=== PATIENT | male | born 1975 | race Caucasian/White ===

== ENCOUNTER 2019-04-04 16:38 | Inpatient (IN) | payer OTHER ==
[2019-04-04] MEDS ORDERED: SODIUM CHLORIDE 1,000 ML IV STA (16:42)
--- NOTE | 2019-04-04 16:42 | PDOC ---
Rapid Medical Evaluation Time Seen by Provider: 04/04/19 16:39 Medical Evaluation: I have performed a brief in-person evaluation of this patient. The patient presents with a chief complaint of: Sent by PCP for elevated sugar and ketones in urine; tests were done this morning; patient denies any prior hx of DM; patient reports increased thirst, polyuria x 1 month; denies n/v, abd pain Pertinent physical exam findings: In NAD I have ordered the following: Labs The patient will proceed to the ED for further evaluation. 04/04/19 16:39
--- NOTE | 2019-04-04 17:03 | PDOC ---
History of Present Illness - General Chief Complaint: Blood Sugar Problem Stated Complaint: SENT BY DOCTOR Time Seen by Provider: 04/04/19 16:39 - History of Present Illness Initial Comments: 04/04/19 17:35 PCP: Dr. Denisse Mei. Patient is a 43 year old male called by his PCP to come to the ED for evaluation of ketones in urine and elevated blood sugar. As per the patient, he went to his PCP for a physical today, got his blood work done at [facility] and was called by Dr. Mei to come to the ED for the treatment of hyperglycemia. Patient reports that for the past month, he has lost about 30 lbs, has been having polyuria, urinating almost every hour even at night. Polydipsia, drinking 15-20 bottles a day. He also has been feeling weak, tired and loss of appetite since a month. Patient has been using his 's finger stick glucose monitoring, readings were 400's and sometimes even over the range. He has a h/o asthma and states that he has worsening shortness of breath for the past 3 weeks, unable to walk more than 10 mis. Uses Proair for shortness of breath. Has been taking multivitamins for the past 2 weeks which has been helping his energy level and shortness of breath. Past Medical History: None reported. Didn't have blood work done in 10 yrs Allergies: Shellfish Past Surgical History: None reported Medications: Multivitamins Social history: Lives with his and 3 kids (22 yrs, 10 yrs and 3 yrs) Smoking: Denies Alcohol: Rarely, last alcohol intake was 10yrs ago Drugs: Denies Occupation: Works at a construction company Travel: None. Past History - Travel Traveled outside of the country in the last 30 days: No Close contact w/someone who was outside of country & ill: No - Past Medical History Allergies/Adverse Reactions: Allergies Allergy/AdvReac Type Severity Reaction Status Date / Time No Known Allergies Allergy Verified 04/04/19 16:43 Home Medications: Ambulatory Orders Albuterol Sulfate Inhaler - [Ventolin HFA Inhaler -] 2 inh PO Q8H PRN MDD 3 04/18 Glimepiride 2 mg DAILY 04/06/19 Insulin (Levemir) [Levemir Vial] 20 unit SQ DAILY 04/06/19 Metformin HCl [Glucophage] 500 mg BID 04/06/19 COPD: No - Surgical History Gastric Stapling: No - Immunization History Immunization Up to Date: No - Suicide/Smoking/Psychosocial Hx Smoking History: Never smoked Have you smoked in the past 12 months: No Information on smoking cessation initiated: No Hx Alcohol Use: No Drug/Substance Use Hx: No Review of Systems - Review of Systems Able to Perform ROS?: Yes Is the patient limited Divehi proficient: No *Physical Exam - Vital Signs Last Vital Signs Temp Pulse Resp BP Pulse Ox 98.7 F 95 H 18 130/83 99 04/04/19 16:40 04/04/19 16:40 04/04/19 16:40 04/04/19 16:40 04/04/19 16:40 - Physical Exam Comments: 04/04/19 17:46 General: Patient is sitting comfortably in a chair, awake, alert, oriented, in no acute distress. HEENT: EOM intact, no pallor or icterus. Chest: B/L lungs clear, no added sounds CVS: Regular rate rhythm, no mumurs Abdomen: Soft, non tender, no organomegaly, BS + Ext: No peripheral edema Neuro: Awake, alert, oriented x 3. No focal neurological deficits. ED Treatment Course - LABORATORY CBC & Chemistry Diagram: 04/06/19 06:20 04/06/19 06:20 Medical Decision Making - Medical Decision Making 04/04/19 17:50 Patient had CBC, CMP done this morning at [facility]. Blood sugar was 315 with normal AG. A1c 13.5. Will do a stat BMP. If AG is closed, will give him a dose of Metformin 500 mg. Rest of the labs HIV, Hep panel, RPR is pending 04/04/19 18:54 Repeat BMP : Random glucose 697 with normal Anion gap. Will admit the patient.. IV NS 500 bolus followed by maintenance. IV Insulin 5 Units. Admit to Med-Surg for observation. Will microblog symphony. 04/04/19 18:58 Spoke with the patient. He agrees to stay. Signed out to Dr. Luis. *DC/Admit/Observation/Transfer Diagnosis at time of Disposition: Type 2 diabetes mellitus with hyperosmolarity without nonketotic hyperglycemic- hyperosmolar coma ([facility]) - Discharge Dispostion Disposition: HOME Condition at time of disposition: Improved - Referrals - Patient Instructions - Post Discharge Activity
--- NOTE | 2019-04-04 17:31 | PDOC ---
Attending Attestation - Resident Resident Name: Isaac,Jenny - ED Attending Attestation I have performed the following: I have examined & evaluated the patient, The case was reviewed & discussed with the resident, I agree w/resident's findings & plan, Exceptions are as noted - HPI HPI: 04/04/19 18:04 Mr johnson is a 43 yo M who presents to the ER upon the recommendation of his PMD Pt has no past medical history Pt notes that he has had polyuria (he urinates every hour which makes it difficult to sleep through the night and do he 2 hour commute to work), polydypsia His is a diabetic and was able to do a fingerstick for the patient He has noted fingersticks between 200-400. Sometimes, the fingerstick is above range Pt was seen by Dr. Mei today who sent labs Pt was called by Dr Mei when the labs revealed a blood glucose of 300 Pt was referred to Dr Roche Pt denies fevers, chills, headache Pt denies chest pain, shortness of breath, palpitation 04/04/19 18:26 - Physicial Exam PE: 04/04/19 18:07 GENERAL: The patient is in no acute distress EYES: PERRLA, EOMI ENT: Dry mucous membranes NECK: Normal range of motion, supple LUNGS: Breath sounds equal, clear to auscultation bilaterally. HEART:Regular rate and rhythm, normal S1 and S2 without murmur, rub or gallop. ABDOMEN: Soft, nontender, normoactive bowel sounds. EXTREMITIES: Normal range of motion NEUROLOGICAL: Cranial nerves II through XII grossly intact. Normal speech. No focal neurological deficits. MUSCULOSKELETAL: Back non-tender to palpation SKIN: Warm, Dry, normal turgor, no rashes or lesions noted. - Medical Decision Making 04/04/19 18:31 43 yo M presenting with polyuria polydypsia Pt has new onset diabetes Will repeat labs Will hydrate Will start Metformin 04/04/19 18:43 Laboratory Tests 04/04/19 17:45 Sodium 129 L Potassium 4.2 Chloride 93 L Carbon Dioxide 25 Anion Gap 11 BUN 14 Creatinine 1.2 Calcium 9.4 04/04/19 18:52 Laboratory Tests 04/04/19 17:45 Random Glucose 697 H* Blood glucose very elevated Will give IVF, Insulin, Metformin, Repeat fingerstick 04/04/19 21:18 EKG - Sinus tachycardia rate of 107bpm, axis nml, intervals nml, no st elevation or depression, t waves upright Will admit to hospitalist service Clinical impression: new onset diabetes, initial presentation
[2019-04-04 18:38] LABS: CALCIUM 9.4 mg/dL (8.5-10.1); CREATININE 1.2 mg/dL (0.55-1.3); POTASSIUM 4.2 mmol/L (3.5-5.1)
[2019-04-04] MEDS ORDERED: SODIUM CHLORIDE 500 ML IV STA (18:58)
[2019-04-04] MEDS ORDERED: INSULIN REGULAR HUMAN 100 UNITS/ML *VIAL IVPUSH ONE (18:59)
[2019-04-04] MEDS ORDERED: metFORMIN HCL 500 MG TABLET (FP) PO ONE (19:02)
--- NOTE | 2019-04-04 19:25 | PN ---
Teaching Attending Note Name of Resident: Ericka Fatima ATTENDING PHYSICIAN STATEMENT I saw and evaluated the patient. I reviewed the resident's note and discussed the case with the resident. I agree with the resident's findings and plan as documented. SUBJECTIVE: Patient is a 43 year old maln with history of asthma and recently diagnosed DM called by his PCP to come to the ER for evaluation of ketones in urine and elevated blood sugar. He went to his PCP for a physical today, and was called by Dr. Mei to come to the ER for the treatment of hyperglycemia. Patient reports that for the past month, he has lost about 30 lbs, has been having polyuria, urinating almost every hour even at night. Polydipsia, drinking 15-20 bottles a day. He also has been feeling weak, tired and loss of appetite since a month. Patient has been using his 's finger stick glucose monitoring, readings were 400's and sometimes even over the range. He has worsening shortness of breath for the past 3 weeks, unable to walk more than 10 mis. Uses Proair for shortness of breath. OBJECTIVE: Alert Vital Signs Period Temp Pulse Resp BP Sys/Boggs Pulse Ox Last 24 Hr 98.7 F 95 18 130/83 99 HEENT: No Jaundice, eye redness or discharge, PERRLA, EOMI. Normocephalic, atraumatic. External ears are normal and hearing is grossly intact. No nasal discharge. Neck: Supple, nontender. No palpable adenopathy or thyromegaly. No JVD Chest: Good effort. Clear to auscultation and percussion. Heart: Regular. No S3, rub or murmur Abdomen: Not distended, soft, nontender and no HSM. No rebound or guarding. Normal bowel sounds. Ext: Peripheral pulses intact. No leg edema. : Phimosis with tender foreskin; crusting with white spots. Skin: Warm and dry. No petechiae, rash or ecchymosis. Neuro: Alert. Oriented x3. CN 2-12 grossly intact. Sensation grossly intact in all four extremities and DTR are symmetric. Psych: Appropriate mood and affect. Good insight. Current Medications Generic Name Dose Route Start Last Admin Trade Name Freq PRN Reason Stop Dose Admin Sodium Chloride 500 mls @ 500 mls/hr 04/04/19 18:58 Normal Saline - IV 04/04/19 19:57 ASDIR STA Abnormal Lab Results 04/04/19 17:45 Sodium 129 L Chloride 93 L Random Glucose 697 H* ASSESSMENT AND PLAN: 1. Uncontrolled DM/New Onset DM - Hyperglycemia improving after being treated with insulin and IV NS in the ER. Will give IV KCL once indicated. No evidence of DKA and no precipitating infection. Will treat with metformin and implement sliding scale insulin regimen. Provide comprehensive diabetes care with patient teaching and counseling about the importance of adherence to prescribed diabetes regimen, euglycemia, eye care and foot care. Refer to VNS upon discharge and to Opthalmology for eye exam. Treat balanitis with fluconazole. Patient already has a referral to Urology for Phimosis. Will repeat urinalysis and if proteinuria persists, will give an ACEI or ARB. Nonpharmacologic measures to control hypertension like weight loss, salt restriction and exercise discussed. Continue comprehensive care for asthma. 2. Overweight Counseled on the risks associated with overweight. Will provide patient all the necessary assistance, counseling and positive reinforcement to facilitate weight loss. Consult cub reporter. Recent unintended weight loss likely due to emergence of DM. 3. DVT prophylaxis - Lovenox 40 mg SQ q 24 hours. 4. Advance directives - Full code
[2019-04-04] MEDS ORDERED: metFORMIN HCL 500 MG TABLET (FP) ONE (19:33)
[2019-04-04] MEDS ORDERED: INSULIN REGULAR HUMAN 100 UNITS/ML *VIAL ONE (19:33)
[2019-04-04 19:39] LABS: BASO % 0.6 % (0-2.0); EOS % 1.9 % (0-4.5); HEMATOCRIT 48.7 % (35.4-49); LYMPH % 25.6 % (8-40); MCH 30.7 pg (25.7-33.7); MCHC 32.9 g/dl (32.0-35.9); MEAN CELL VOLUME 93.2 fl (80-96); MEAN PLT VOLUME 10.2 fl (7.5-11.1); MONO % 10.6 % (3.8-10.2); NEUT % 61.3 % (42.8-82.8); PLATELET COUNT 197 K/MM3 (134-434); RBC 5.23 M/mm3 (4.00-5.60); RDW 13.4 % (11.9-15.9); WHITE BLOOD COUNT 7.3 K/mm3 (4.0-10.0)
--- NOTE | 2019-04-04 19:48 | HP ---
CHIEF COMPLAINT: Referred for elevated glucose by PCP PCP: Denisse Mei HISTORY OF PRESENT ILLNESS: Pt is a 43 yo M with PMHx of asthma, seasonal allergies presenting from PCP with elevated glucose up to the 300s. Pt reports polyuria (every hour), polydypsia,nocturia, and unintentional weight loss of 230lb to 193lb over the past month with increased lethargy and malaise. Pt reports a prior poor diet- high in carbs and sugary drinks prior to onset of symptoms one month ago, after which he cut off sweet drinks and was drinking up to 15-20 bottles of water per day. Pt's is a diabetic on metformin and insulin so pt had been checking his blood glucose at home prior to presentation. Over a monh ago, the glucometer read "high" but within the past month, he has ranged within 200s-300s. Pt denies fevers, hematuria or dysuria but has noted pain and tightening of his penile foreskin, without urethral discharge. Pt reports reduced exercise intolerance, with increased SOB on exertion. No chest pain or palpitations. 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 He has never been prescribed inhaled or PO steroids but got an intralesional steroid injection for a hand cyst in 1994. Pt has had reduced sexual activity despite normal desire, due to recent "tightened foreskin". Pt second degree relatives with DM. He saw his PCP today and was asked to come to ED. She also gave him referrals to urology, for CTAP and GI (for weight loss). 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 Lives with and 2 daughters-3.10 (has a 22yr old daughter also) Smoking:Denies Alcohol:Occasional Drugs: Denies Family History: Allergies Seasonal No Known Allergies Allergy (Verified 04/04/19 16:43) HOME MEDICATIONS: REVIEW OF SYSTEMS CONSTITUTIONAL: generalized weakness, malaise, weight change Absent: fever, chills, diaphoresis, , loss of appetite, HEENT: Absent: rhinorrhea, nasal congestion, throat pain, throat swelling, difficulty swallowing, mouth swelling, ear pain, eye pain, visual changes CARDIOVASCULAR: Absent: chest pain, syncope, palpitations, irregular heart rate, lightheadedness , peripheral edema RESPIRATORY: shortness of breath, dyspnea with exertion, Absent: cough, orthopnea, wheezing, stridor, hemoptysis GASTROINTESTINAL: Absent: abdominal pain, abdominal distension, nausea, vomiting, diarrhea, constipation, melena, hematochezia GENITOURINARY: frequency Absent: dysuria, , urgency, hesitancy, hematuria, flank pain, genital pain MUSCULOSKELETAL: Absent: myalgia, arthralgia, joint swelling, back pain, neck pain SKIN: Absent: rash, itching, pallor HEMATOLOGIC/IMMUNOLOGIC: Absent: easy bleeding, easy bruising, lymphadenopathy, frequent infections ENDOCRINE: unexplained weight loss Absent: unexplained weight gain, heat intolerance, cold intolerance NEUROLOGIC: Absent: headache, focal weakness or paresthesias, dizziness, unsteady gait, seizure, mental status changes, bladder or bowel incontinence PSYCHIATRIC: Absent: anxiety, depression, suicidal or homicidal ideation, hallucinations. PHYSICAL EXAMINATION Vital Signs - 24 hr 04/04/19 16:40 Temperature 98.7 F Pulse Rate 95 H Respiratory 18 Rate Blood Pressure 130/83 O2 Sat by Pulse 99 Oximetry (%) GENERAL: Awake, alert, and fully oriented, in no acute distress. HEAD: Normal with no signs of trauma. EYES: Pupils equal, round and reactive to light, extraocular movements intact, sclera anicteric, conjunctiva clear. Visual acuity (counting fingers), patient with corrective lenses, funduscopic exam (undilated pupils- not revealing of any pathology) EARS, NOSE, THROAT: Ears normal, nares patent, oropharynx clear without exudates. Moist mucous membranes. NECK: Normal range of motion, supple LUNGS: Breath sounds equal, clear to auscultation bilaterally. No wheezes, and no crackles. HEART: Regular rate and rhythm, normal S1 and S2 without murmur ABDOMEN: Soft, nontender, not distended, normoactive bowel sounds, no guarding Genitalia: Foreskin retracted over urethral orifice with scattered whitish deposits within and around urethra, pinkish, no abnormal discharge or rash noted MUSCULOSKELETAL: Normal range of motion at all joints. No bony deformities or tenderness. No CVA tenderness. LOWER EXTREMITIES: 2+ pulses, warm, well-perfused. No calf tenderness. No peripheral edema. NEUROLOGICAL: AAOx3, No lateralizing signs, No facial droop, normal sensation, central uvular and tongue, shoulder shrug normal, Cranial nerves II-XII intact.Normal tone globally, hyporeflexia, b/l ankles, L, knee, normoreflexia triceps b/l, biceps b/l, brachioradialis b/l. Downgoing plantar reflex. Normal speech. Normal gait. No drift, negative dysdiachokinesia, absent ataxia. PSYCHIATRIC: Cooperative. Good eye contact. Appropriate mood and affect. SKIN: Warm, dry, normal turgor, no rashes or lesions noted, normal capillary refill. CBCD WBC 7.3 K/mm3 (4.0-10.0) 04/04/19 19:20 RBC 5.23 M/mm3 (4.00-5.60) 04/04/19 19:20 Hgb 16.0 GM/dL (11.7-16.9) 04/04/19 19:20 Hct 48.7 % (35.4-49) 04/04/19 19:20 MCV 93.2 fl (80-96) 04/04/19 19:20 MCHC 32.9 g/dl (32.0-35.9) 04/04/19 19:20 RDW 13.4 % (11.9-15.9) 04/04/19 19:20 Plt Count 197 K/MM3 (134-434) 04/04/19 19:20 MPV 10.2 fl (7.5-11.1) 04/04/19 19:20 CMP Sodium 131 mmol/L (136-145) L 04/04/19 19:20 Potassium 4.2 mmol/L (3.5-5.1) 04/04/19 19:20 Chloride 94 mmol/L (98-107) L 04/04/19 19:20 Carbon Dioxide 26 mmol/L (21-32) 04/04/19 19:20 Anion Gap 10 MMOL/L (8-16) 04/04/19 19:20 BUN 12 mg/dL (7-18) 04/04/19 19:20 Creatinine 1.1 mg/dL (0.55-1.3) 04/04/19 19:20 Random Glucose 488 mg/dL (74-106) H* 04/04/19 19:20 Calcium 9.5 mg/dL (8.5-10.1) 04/04/19 19:20 Total Bilirubin 0.4 mg/dL (0.2-1) 04/04/19 19:20 AST 17 U/L (15-37) 04/04/19 19:20 ALT 43 U/L (13-61) 04/04/19 19:20 Alkaline Phosphatase 118 U/L (45-117) H 04/04/19 19:20 Total Protein 7.6 g/dl (6.4-8.2) 04/04/19 19:20 Albumin 3.6 g/dl (3.4-5.0) 04/04/19 19:20 Laboratory Results - last 24 hr 04/04/19 17:45 Sodium 129 L Potassium 4.2 Chloride 93 L Carbon Dioxide 25 Anion Gap 11 BUN 14 Creatinine 1.2 Est GFR (CKD-EPI)AfAm 85.32 Est GFR (CKD-EPI)NonAf 73.62 Random Glucose 697 H* Calcium 9.4 ASSESSMENT/PLAN: Pt is a 43 yo M with PMHx of asthma, seasonal allergies presenting with new onset DM Assessment: New onset DM with Hyperglycemia- 697, [id number] Hyponatremia- nabor-139 Ketonuria Proteinuria Glycosuria Hyperlipidemia Erythrocytosis Dehydration Balanitis Weight loss Blurring vision Dyspnea on exertion Asthma Seasonal allergies Cr-1.2 Plan: DM: Hyperglycemia up to 670s, HgbA1c- 13.5, received metformin and iv insulin in ED, repeat BGM- 175 KCL 40meq PO stat Pt not acidotic despite ketonuria, and glycosuria Serum osmoles not in HHS range, Pt is a candidate for insulin therapy, will initiate ISS ACHS, basal insulin to be determined as half 24hr dose Pt is insulin niave and appeared to ddrop fast, counselled against hypoglycemia , will maintain ISS for today and hold off metformin as in pt DM education instituted- Eye care stat emphasized, annual foot care, counselling on foot care including foot wear For outpt fll up with Dr Smith per PCP Pt will need DM/insulin education-SW Dehydration: In setting of hyperglycemia NS @83 Blurred vision could be due to hyperglycemia with acute change in refractive index/ retinopathy Tight glycemic control, follow ophtho as outpx Hyponatremia- nabor-139: In setting of hyperglycemia and dehydration- 1.5L Pt on NS, cont gentle hydration @83/hr K repletion PO CMP, Mg, ph Proteinuria -1+: With new onset DM BP Stage 1 HTN Start ACEI for renal protection Hyperlipidemia ASCVD- 4% risk of cardiovascular event, 0.9% 10 year risk of cardiovascular event Pt with family hx of DM Will initiate statins Balanitis Clotrimazole cream Erythrocytosis Likely in setting of dehydration/ obstructive lung disease Rehydrate Pending CXR SOB Could be in setting of asthma, R/O cardiovascular disease ECHO Statins Weight loss: Likely in setting of DM Outpt work up per PCP Asthma/seasonal allergies Not in exacerbation Albuterol Spiriva Hep sq Med surg Visit type - Emergency Visit Emergency Visit: Yes ED Registration Date: 04/04/19 Care time: The patient presented to the Emergency Department on the above date and was hospitalized for further evaluation of their emergent condition. - New Patient This patient is new to me today: Yes Date on this admission: 04/05/19 - Critical Care Critical Care patient: No
[2019-04-04 19:54] LABS: VENOUS PC02 41.1 mmHg (41-51); VENOUS PH 7.39 (7.31-7.41); VENOUS PO2 52.1 mmHg (30-40)
[2019-04-04 20:11] LABS: ALBUMIN 3.6 g/dl (3.4-5.0); ALK PHOS 118 U/L (45-117); ANION GAP 10 MMOL/L (8-16); BILIRUBIN,TOTAL 0.4 mg/dL (0.2-1); BLOOD UREA NITROGEN 12 mg/dL (7-18); CALCIUM 9.5 mg/dL (8.5-10.1); CHLORIDE 94 mmol/L (98-107); CO2 26 mmol/L (21-32); CREATININE 1.1 mg/dL (0.55-1.3); POTASSIUM 4.2 mmol/L (3.5-5.1); SGOT/AST 17 U/L (15-37); SGPT/ALT 43 U/L (13-61); SODIUM 131 mmol/L (136-145); TOT PROT 7.6 g/dl (6.4-8.2)
[2019-04-04 20:13] LABS: ACETONE SERUM POSITIVE MODERATE 2+ (NEGATIVE)
[2019-04-04 20:14] LABS: GLUCOSE,RANDOM 488 mg/dL (74-106)
[2019-04-04 20:21] LABS: ALBUMIN 3.5 g/dl (3.4-5.0); BILIRUBIN,DIRECT 0.1 mg/dL (0.0-0.2); BILIRUBIN,TOTAL 0.4 mg/dL (0.2-1); MAGNESIUM 1.9 mg/dL (1.8-2.4); PHOSPHOROUS 3.7 mg/dL (2.5-4.9); TOT PROT 7.3 g/dl (6.4-8.2)
[2019-04-04] MEDS ORDERED: POTASSIUM CHLORIDE ORAL LIQUID 20 MEQ/15 ML PO ONE (22:13)
[2019-04-04] MEDS ORDERED: ALBUTEROL SO4 2.5/IPRATROPIUM 0.5 INH SOL 3 ML VIAL.NEB. NEB PRN (22:33)
[2019-04-04] MEDS ORDERED: ALBUTEROL SO4 8 GM HFA INHALER IH PRN (22:33)
[2019-04-04 23:22] VITALS: BMI 29.2
[2019-04-04] MEDS: HEPARIN NA (PORCINE) 5,000 UNITS/ML 1ML VIAL SQ SCH (23:57)
[2019-04-05] MEDS: SODIUM CHLORIDE 1,000 ML IV SCH ×2 (00:03→12:47)
[2019-04-05] MEDS: ATORVASTATIN CA 40 MG TABLET (FP) PO SCH ×2 (00:04→21:31)
[2019-04-05] MEDS: CLOTRIMAZOLE 1% CREAM 15 GM TUBE TP SCH ×3 (00:04→21:32)
[2019-04-05] MEDS ORDERED: INSULIN (NOVOLOG) ASPART 100 UNITS/ML 10ML VIAL ONE ×3 (06:21→20:39)
[2019-04-05] MEDS: HEPARIN NA (PORCINE) 5,000 UNITS/ML 1ML VIAL SQ SCH ×3 (06:22→21:31)
[2019-04-05] MEDS: INSULIN SLIDING SCALE (NOVOLOG) 1 VIAL SQ SCH ×5 (06:22→21:32)
[2019-04-05 07:26] LABS: BASO % 0.8 % (0-2.0); EOS % 2.3 % (0-4.5); HEMATOCRIT 44.3 % (35.4-49); HEMOGLOBIN 14.7 GM/dL (11.7-16.9); LYMPH % 22.9 % (8-40); MCH 30.9 pg (25.7-33.7); MCHC 33.3 g/dl (32.0-35.9); MEAN CELL VOLUME 92.9 fl (80-96); MEAN PLT VOLUME 10.1 fl (7.5-11.1); MONO % 11.8 % (3.8-10.2); NEUT % 62.2 % (42.8-82.8); PLATELET COUNT 162 K/MM3 (134-434); RBC 4.77 M/mm3 (4.00-5.60); RDW 13.5 % (11.9-15.9); WHITE BLOOD COUNT 5.9 K/mm3 (4.0-10.0)
[2019-04-05 07:33] LABS: BILIRUBIN,TOTAL 0.5 mg/dL (0.2-1); CALCIUM 8.5 mg/dL (8.5-10.1); CREATININE 0.8 mg/dL (0.55-1.3); MAGNESIUM 1.8 mg/dL (1.8-2.4); PHOSPHOROUS 3.2 mg/dL (2.5-4.9); POTASSIUM 4.4 mmol/L (3.5-5.1); TOT PROT 6.4 g/dl (6.4-8.2)
[2019-04-05 08:01] LABS: INR 0.98 (0.83-1.09); PROTHROMBIN TIME (PATIENT) 11.6 SEC (9.7-13.0)
[2019-04-05 08:03] LABS: ACTIVATED PTT 27.1 SECONDS (25.2-36.5)
[2019-04-05] MEDS: LOSARTAN POTASSIUM 50 MG TABLET (FP) PO SCH (10:27)
[2019-04-05 12:36] LABS: EPI CELLS 1.1 /HPF (0-5/HPF); HYALINE CASTS 0 /lpf (0-8); PH,URINE 5.5 (5.0-8.0); URINE APPEARANCE CLEAR; URINE BILIRUBIN NEGATIVE (NEGATIVE); URINE COLOR YELLOW; URINE GLUCOSE (UA) 3+ (NEGATIVE); URINE KETONE 3+ (NEGATIVE); URINE LEUK ESTERASE 2+ (NEGATIVE); URINE NITRITE NEGATIVE (NEGATIVE); URINE PROTEIN NEGATIVE (NEGATIVE); URINE RBC 2 /hpf (0-4); URINE WBC 59 /hpf (0-5)
--- NOTE | 2019-04-05 12:53 | EKG ---
Test Reason : Blood Pressure : / mmHG Vent. Rate : 107 BPM Atrial Rate : 107 BPM P-R Int : 126 ms QRS Dur : 076 ms QT Int : 320 ms P-R-T Axes : 054 -06 029 degrees QTc Int : 427 ms POOR DATA QUALITY, INTERPRETATION MAY BE ADVERSELY AFFECTED SINUS TACHYCARDIA POSSIBLE LEFT ATRIAL ENLARGEMENT BORDERLINE ECG NO PREVIOUS ECGS AVAILABLE Confirmed by SAMREEN BUI MD ([id number]) on 04/05/2019 12:52:58 PM Referred By: Confirmed By:SAMREEN BUI MD
--- NOTE | 2019-04-05 13:47 | ECHO ---
Name: TAMARA GRACE Exam:Adult Echocardiogram Study Date: 04/05/2019 10:51 AM Age: 43 yrs Reason For Study: SOB Height: 68 in Weight: 193 lb BSA: 2.0 m2 MMode/2D Measurements & Calculations IVSd: 1.0 cm Ao root diam: 3.3 cm LVIDd: 4.6 cm LA dimension: 3.4 cm LVIDs: 3.3 cm LVPWd: 0.92 cm EDV(Teich): 95.9 ml LVOT diam: 2.0 cm ESV(Teich): 43.3 ml LAV (MOD-bp): 35.1 ml Doppler Measurements & Calculations MV E max jhonny: 81.5 cm/sec Ao V2 max: 176.5 cm/sec MV A max jhonny: 74.7 cm/sec Ao max P.5 mmHg MV E/A: 1.1 MV dec time: 0.18 sec QUINTIN(V,D): 2.1 cm2 LV V1 max P.2 mmHg TR max jhonny: 183.9 cm/sec LV V1 max: 124.2 cm/sec TR max P.5 mmHg PA V2 max: 123.5 cm/sec Med Peak E' Jhonny: 7.3 cm/sec PA max P.1 mmHg Med E/e': 11.2 Lat Peak E' Jhonny: 9.5 cm/sec Lat E/e': 8.6 PI Vmax: 164.2 cm/sec Procedure A complete two-dimensional transthoracic echocardiogram was performed (2D, M-mode, Doppler and color flow Doppler). Left Ventricle The left ventricular size, thickness and function are normal. The left ventricular ejection fraction is normal. Ejection Fraction = 55-60%. The left ventricular wall motion is normal. Right Ventricle The right ventricle is normal in size and function. Atria Normal left and right atrial size and function. Mitral Valve There is no mitral regurgitation noted. Tricuspid Valve There is trace tricuspid regurgitation. There was insufficient TR detected to calculate RV systolic p ressure. Aortic Valve No hemodynamically significant valvular aortic stenosis. No aortic regurgitation is present. Pulmonic Valve There is no pulmonic valvular regurgitation. Great Vessels The aortic root is normal size. Pericardium/Pleura There is no pericardial effusion. Interpretation Summary The left ventricular size, thickness and function are normal The right ventricle is normal in size and function. There is trace tricuspid regurgitation. MD Harpal Hu 04/05/2019 01:47 PM
--- NOTE | 2019-04-05 17:27 | PN ---
Physical Exam: SUBJECTIVE: Patient seen and examined at bedside. Denies blurry vision or shortness of breath. OBJECTIVE: Vital Signs Period Temp Pulse Resp BP Sys/Boggs Pulse Ox Last 24 Hr 97.2 F-99.4 F 83-100 16-20 114-132/21-84 98-100 GENERAL: NAD HEAD: Normal with no signs of trauma. EYES: EOMI Sclera Clear ENT: Ears normal, nares patent, oropharynx clear without exudates, moist mucous membranes. NECK: Trachea midline, full range of motion, supple. LUNGS: CTAB HEART: RRR S1S2 ABDOMEN: Soft, NDNT EXTREMITIES: 2+ pulses, warm, well-perfused, no edema. No ulcers or onychomycosis appreciated. NEUROLOGICAL: Cranial nerves II through XII grossly intact. Normal speech, gait not observed. PSYCH: Normal mood, normal affect. SKIN: Warm, dry, normal turgor, no rashes or lesions noted Laboratory Results - last 24 hr 04/04/19 04/04/19 04/04/19 17:45 19:20 19:20 WBC 7.3 RBC 5.23 Hgb 16.0 Hct 48.7 MCV 93.2 MCH 30.7 MCHC 32.9 RDW 13.4 Plt Count 197 MPV 10.2 Absolute Neuts (auto) 4.5 Neutrophils % 61.3 Lymphocytes % 25.6 Monocytes % 10.6 H Eosinophils % 1.9 Basophils % 0.6 Nucleated RBC % 0 PT with INR INR PTT (Actin FS) VBG pH 7.39 POC VBG pCO2 41.1 POC VBG pO2 52.1 H VBG HCO3 24.5 VBG O2 Sat (Alpa) 85.5 H VBG Base Excess 0.1 Sodium 129 L Potassium 4.2 Chloride 93 L Carbon Dioxide 25 Anion Gap 11 BUN 14 Creatinine 1.2 Est GFR (CKD-EPI)AfAm 85.32 Est GFR (CKD-EPI)NonAf 73.62 POC Glucometer Random Glucose 697 H* Serum Osmolality 308 H Calcium 9.4 Phosphorus 3.7 Magnesium 1.9 Total Bilirubin 0.4 Direct Bilirubin 0.1 AST 15 ALT 42 Alkaline Phosphatase 124 H Total Protein 7.3 Albumin 3.5 Urine Color Urine Appearance Urine pH Ur Specific [place] Urine Protein Urine Glucose (UA) Urine Ketones Urine Blood Urine Nitrite Urine Bilirubin Urine Urobilinogen Ur Leukocyte Esterase Urine WBC (Auto) Urine RBC (Auto) Urine Casts (Auto) U Epithel Cells (Auto) Urine Bacteria (Auto) Acetone, Qual 04/04/19 04/04/19 04/05/19 19:20 20:24 06:00 WBC 5.9 RBC 4.77 Hgb 14.7 Hct 44.3 MCV 92.9 MCH 30.9 MCHC 33.3 RDW 13.5 Plt Count 162 MPV 10.1 Absolute Neuts (auto) 3.7 Neutrophils % 62.2 Lymphocytes % 22.9 Monocytes % 11.8 H Eosinophils % 2.3 Basophils % 0.8 Nucleated RBC % 0 PT with INR INR PTT (Actin FS) VBG pH POC VBG pCO2 POC VBG pO2 VBG HCO3 VBG O2 Sat (Alpa) VBG Base Excess Sodium 131 L Potassium 4.2 Chloride 94 L Carbon Dioxide 26 Anion Gap 10 BUN 12 Creatinine 1.1 Est GFR (CKD-EPI)AfAm 94.79 Est GFR (CKD-EPI)NonAf 81.78 POC Glucometer 175 Random Glucose 488 H* Serum Osmolality Calcium 9.5 Phosphorus Magnesium Total Bilirubin 0.4 Direct Bilirubin AST 17 ALT 43 Alkaline Phosphatase 118 H Total Protein 7.6 Albumin 3.6 Urine Color Urine Appearance Urine pH Ur Specific [place] Urine Protein Urine Glucose (UA) Urine Ketones Urine Blood Urine Nitrite Urine Bilirubin Urine Urobilinogen Ur Leukocyte Esterase Urine WBC (Auto) Urine RBC (Auto) Urine Casts (Auto) U Epithel Cells (Auto) Urine Bacteria (Auto) Acetone, Qual Positive moderate 2+ 04/05/19 04/05/19 04/05/19 06:00 06:00 06:18 WBC RBC Hgb Hct MCV MCH MCHC RDW Plt Count MPV Absolute Neuts (auto) Neutrophils % Lymphocytes % Monocytes % Eosinophils % Basophils % Nucleated RBC % PT with INR 11.60 INR 0.98 PTT (Actin FS) 27.1 VBG pH POC VBG pCO2 POC VBG pO2 VBG HCO3 VBG O2 Sat (Alpa) VBG Base Excess Sodium 135 L Potassium 4.4 Chloride 100 Carbon Dioxide 27 Anion Gap 7 L BUN 11 Creatinine 0.8 Est GFR (CKD-EPI)AfAm 126.81 Est GFR (CKD-EPI)NonAf 109.41 POC Glucometer 267 Random Glucose 268 H Serum Osmolality Calcium 8.5 Phosphorus 3.2 Magnesium 1.8 Total Bilirubin 0.5 Direct Bilirubin AST 11 L ALT 35 Alkaline Phosphatase 84 Total Protein 6.4 Albumin 3.0 L Urine Color Urine Appearance Urine pH Ur Specific [place] Urine Protein Urine Glucose (UA) Urine Ketones Urine Blood Urine Nitrite Urine Bilirubin Urine Urobilinogen Ur Leukocyte Esterase Urine WBC (Auto) Urine RBC (Auto) Urine Casts (Auto) U Epithel Cells (Auto) Urine Bacteria (Auto) Acetone, Qual 04/05/19 04/05/19 04/05/19 11:55 12:04 17:02 WBC RBC Hgb Hct MCV MCH MCHC RDW Plt Count MPV Absolute Neuts (auto) Neutrophils % Lymphocytes % Monocytes % Eosinophils % Basophils % Nucleated RBC % PT with INR INR PTT (Actin FS) VBG pH POC VBG pCO2 POC VBG pO2 VBG HCO3 VBG O2 Sat (Alpa) VBG Base Excess Sodium Potassium Chloride Carbon Dioxide Anion Gap BUN Creatinine Est GFR (CKD-EPI)AfAm Est GFR (CKD-EPI)NonAf POC Glucometer 211 208 Random Glucose Serum Osmolality Calcium Phosphorus Magnesium Total Bilirubin Direct Bilirubin AST ALT Alkaline Phosphatase Total Protein Albumin Urine Color Yellow Urine Appearance Clear Urine pH 5.5 Ur Specific [place] 1.030 Urine Protein Negative Urine Glucose (UA) 3+ H Urine Ketones 3+ H Urine Blood Negative Urine Nitrite Negative Urine Bilirubin Negative Urine Urobilinogen 1.0 Ur Leukocyte Esterase 2+ H Urine WBC (Auto) 59 Urine RBC (Auto) 2 Urine Casts (Auto) 0 U Epithel Cells (Auto) 1.1 Urine Bacteria (Auto) 72.0 Acetone, Qual Active Medications Generic Name Dose Route Start Last Admin Trade Name Freq PRN Reason Stop Dose Admin Albuterol Sulfate 2 puff 04/04/19 22:33 Ventolin Hfa Inhaler - IH Q6H PRN SHORT OF BREATH/WHEEZING Albuterol/Ipratropium 1 amp 04/04/19 22:33 Duoneb - NEB Q6H PRN SHORTNESS OF BREATH Atorvastatin Calcium 40 mg 04/04/19 22:30 04/05/19 00:04 Lipitor - PO 40 mg HS WOODY Administration Clotrimazole 1 applic 04/04/19 23:00 04/05/19 10:22 Lotrimin 1% Cream - TP 1 applic BID WOODY Administration Heparin Sodium (Porcine) 5,000 unit 04/04/19 22:15 04/05/19 14:25 Heparin - SQ Not Given TID WOODY Sodium Chloride 1,000 mls @ 83 mls/hr 04/04/19 22:15 04/05/19 12:47 Normal Saline - IV 83 mls/hr ASDIR WOODY Administration Insulin Aspart 1 vial 04/05/19 07:00 04/05/19 17:08 Novolog Vial Sliding Scale - SQ 4 units ACHS WOODY Administration Protocol Losartan Potassium 100 mg 04/05/19 10:00 04/05/19 10:27 Cozaar - PO 100 mg DAILY WOODY Administration ASSESSMENT/PLAN: Pt is a 43 yo M with PMHx of asthma, seasonal allergies presenting with new onset DM # New onset DM: Hyperglycemia up to 670s, HgbA1c- 13.5, received metformin and iv insulin in ED , repeat BGM- 175 -Pt not acidotic despite ketonuria, and glycosuria -Serum osmoles not in HHS range, -Pt is a candidate for insulin therapy as A1C >9% - will initiate ISS ACHS, basal insulin to be determined as half 24hr dose -Endocrinology consult -Pt has been counseled thoroughly on importance of medication compliance and prompt follow up with PCP/Endocrinology. #Proteinuria -1+: With new onset DM BP Stage 1 HTN Start ACEI for renal protection #Hyperlipidemia Cholesterol 246, ldl 142 Pt with family hx of DM Will initiate statins #Balanitis and Phimosis Clotrimazole cream -Urology referral as outpatient for circumcision. #SOB Could be in setting of asthma, R/O cardiovascular disease ECHO---> Trace Tricusid regurg. EF 55-60%. Statins #Weight loss: Likely in setting of DM Outpt work up per PCP #Asthma/seasonal allergies Not in exacerbation Albuterol Spiriva #Hep sq Med surg Visit type - Emergency Visit Emergency Visit: Yes ED Registration Date: 04/04/19 Care time: The patient presented to the Emergency Department on the above date and was hospitalized for further evaluation of their emergent condition. - New Patient This patient is new to me today: Yes Date on this admission: 04/05/19 - Critical Care Critical Care patient: No - Discharge Referral Referred to [facility] Med [facility].: No
--- NOTE | 2019-04-05 19:15 | PN ---
Teaching Attending Note Name of Resident: Hal Tom ATTENDING PHYSICIAN STATEMENT I saw and evaluated the patient. I reviewed the resident's note and discussed the case with the resident. I agree with the resident's findings and plan as documented. SUBJECTIVE: Patient is comfortable with no acute distress. OBJECTIVE: Vital Signs Temperature 98.4 F 04/05/19 18:13 Pulse Rate 74 04/05/19 18:13 Respiratory Rate 20 04/05/19 18:13 Blood Pressure 113/74 04/05/19 18:13 O2 Sat by Pulse Oximetry (%) 98 04/05/19 09:00 GENERAL: The patient is awake, alert, and fully oriented, in no acute distress. HEAD: Normal with no signs of trauma. EYES: PERRL, extraocular movements intact, sclera anicteric, conjunctiva clear. No ptosis. ENT: Ears normal, nares patent, oropharynx clear without exudates, moist mucous membranes. NECK: Trachea midline, full range of motion, supple. LUNGS: Breath sounds equal, clear to auscultation bilaterally, no wheezes, no crackles, no accessory muscle use. HEART: Regular rate and rhythm, S1, S2 without murmur, rub or gallop. ABDOMEN: Soft, nontender, nondistended, normoactive bowel sounds, no guarding, no rebound, no hepatosplenomegaly, no masses. EXTREMITIES: 2+ pulses, warm, well-perfused, no edema. NEUROLOGICAL: Cranial nerves II through XII grossly intact. Normal speech, gait not observed. PSYCH: Normal mood, normal affect. SKIN: Warm, dry, normal turgor, no rashes or lesions noted CBCD WBC 5.9 K/mm3 (4.0-10.0) 04/05/19 06:00 RBC 4.77 M/mm3 (4.00-5.60) 04/05/19 06:00 Hgb 14.7 GM/dL (11.7-16.9) 04/05/19 06:00 Hct 44.3 % (35.4-49) 04/05/19 06:00 MCV 92.9 fl (80-96) 04/05/19 06:00 MCHC 33.3 g/dl (32.0-35.9) 04/05/19 06:00 RDW 13.5 % (11.9-15.9) 04/05/19 06:00 Plt Count 162 K/MM3 (134-434) 04/05/19 06:00 MPV 10.1 fl (7.5-11.1) 04/05/19 06:00 CMP Sodium 135 mmol/L (136-145) L 04/05/19 06:00 Potassium 4.4 mmol/L (3.5-5.1) 04/05/19 06:00 Chloride 100 mmol/L (98-107) 04/05/19 06:00 Carbon Dioxide 27 mmol/L (21-32) 04/05/19 06:00 Anion Gap 7 MMOL/L (8-16) L 04/05/19 06:00 BUN 11 mg/dL (7-18) 04/05/19 06:00 Creatinine 0.8 mg/dL (0.55-1.3) 04/05/19 06:00 Random Glucose 268 mg/dL (74-106) H 04/05/19 06:00 Calcium 8.5 mg/dL (8.5-10.1) 04/05/19 06:00 Total Bilirubin 0.5 mg/dL (0.2-1) 04/05/19 06:00 AST 11 U/L (15-37) L 04/05/19 06:00 ALT 35 U/L (13-61) 04/05/19 06:00 Alkaline Phosphatase 84 U/L (45-117) 04/05/19 06:00 Total Protein 6.4 g/dl (6.4-8.2) 04/05/19 06:00 Albumin 3.0 g/dl (3.4-5.0) L 04/05/19 06:00 Current Medications Generic Name Dose Route Start Last Admin Trade Name Freq PRN Reason Stop Dose Admin Albuterol Sulfate 2 puff 04/04/19 22:33 Ventolin Hfa Inhaler - IH Q6H PRN SHORT OF BREATH/WHEEZING Albuterol/Ipratropium 1 amp 04/04/19 22:33 Duoneb - NEB Q6H PRN SHORTNESS OF BREATH Atorvastatin Calcium 40 mg 04/04/19 22:30 04/05/19 00:04 Lipitor - PO 40 mg HS WOODY Administration Clotrimazole 1 applic 04/04/19 23:00 04/05/19 10:22 Lotrimin 1% Cream - TP 1 applic BID WOODY Administration Glimepiride 2 mg 04/06/19 07:00 Amaryl - PO DAILY@0700 [facility] Heparin Sodium (Porcine) 5,000 unit 04/04/19 22:15 04/05/19 14:25 Heparin - SQ Not Given TID [facility] Insulin Aspart 1 vial 04/05/19 07:00 04/05/19 17:08 Novolog Vial Sliding Scale - SQ 4 units ACHS WOODY Administration Protocol Losartan Potassium 100 mg 04/05/19 10:00 04/05/19 10:27 Cozaar - PO 100 mg DAILY WOODY Administration Home Medications Medication Instructions Recorded Albuterol Sulfate Inhaler - 2 inh PO Q8H PRN MDD 3 04/05/19 [Ventolin Hfa Inhaler -] ASSESSMENT AND PLAN: Patient is a 43 yo Male with PMHx of asthma, seasonal allergies presenting with new onset DM # New onset DM: presented with sugar of 670s, HgbA1c- 13.5. Endocrine for consult dr. Roy , continue Amaryl, started on Levemir # Acute Hyponatremia: improved post ivf # Acute Dehydration: s/p IVF #Blurred vision due to hyperglycemia follow with opthalm as an outpatient, tight sugar control # Proteinuria: start low dose ACEI for renal protection # Hyperlipidemia on statin # Balanitis: clotrimazole cream # Asthma/seasonal allergies: stable , continue home meds DVT Px: hep Med surg
[2019-04-06] MEDS: INSULIN SLIDING SCALE (NOVOLOG) 1 VIAL SQ SCH ×2 (06:24→11:03)
[2019-04-06] MEDS: HEPARIN NA (PORCINE) 5,000 UNITS/ML 1ML VIAL SQ SCH ×2 (06:25→13:10)
[2019-04-06] MEDS ORDERED: GLIMEPIRIDE 2 MG TABLET (FP) PO SCH (07:00)
[2019-04-06 07:41] LABS: HEMATOCRIT 45.5 % (35.4-49); HEMOGLOBIN 15.3 GM/dL (11.7-16.9); MCH 31.2 pg (25.7-33.7); MCHC 33.6 g/dl (32.0-35.9); MEAN PLT VOLUME 10.4 fl (7.5-11.1); PLATELET COUNT 168 K/MM3 (134-434); RBC 4.89 M/mm3 (4.00-5.60); RDW 13.4 % (11.9-15.9); WHITE BLOOD COUNT 5.3 K/mm3 (4.0-10.0)
[2019-04-06 07:49] LABS: CALCIUM 8.6 mg/dL (8.5-10.1); CREATININE 0.8 mg/dL (0.55-1.3); MAGNESIUM 1.8 mg/dL (1.8-2.4); POTASSIUM 4.4 mmol/L (3.5-5.1)
[2019-04-06] MEDS: LOSARTAN POTASSIUM 50 MG TABLET (FP) PO SCH (09:22)
[2019-04-06] MEDS: CLOTRIMAZOLE 1% CREAM 15 GM TUBE TP SCH (09:22)
[2019-04-06 09:51] VITALS: BP 127/73; PULSE 73; TEMP 99.1
--- NOTE | 2019-04-06 13:03 | CONSULT ---
Consult Consult Specialty:: endocrine Referred by:: hospitalist Reason for Consultation:: new onset dm - History of Present Illness Chief Complaint: high sugars History of Present Illness: 43 year old male called by his PCP for new onset dm found to have high sugars and ketones. Patient reports that for the past month, he has lost about 30 lbs, has been having polyuria, urinating almost every hour even at night. Polydipsia , drinking 15-20 bottles a day. He also has been feeling weak, tired and loss of appetite since a month. in ed found to have bs over 400mg/dl Patient has been using his 's finger stick glucose monitoring, readings were 400's and sometimes even over the range,denies chest pain,nausea vomiting or diarhea. - Alcohol/Substance Use Hx Alcohol Use: No - Smoking History Smoking history: Never smoked Have you smoked in the past 12 months: No Home Medications - Allergies Allergies/Adverse Reactions: Allergies Allergy/AdvReac Type Severity Reaction Status Date / Time No Known Allergies Allergy Verified 04/04/19 16:43 - Home Medications Home Medications: Ambulatory Orders Albuterol Sulfate Inhaler - [Ventolin Hfa Inhaler -] 2 inh PO Q8H PRN MDD 3 04/18 Review of Systems - Review of Systems Constitutional: reports: Lethargy Eyes: reports: Recent Change in Vision HENT: reports: No Symptoms Neck: reports: No Symptoms Cardiovascular: reports: No Symptoms Respiratory: reports: Exercise Intolerance, SOB on Exertion Gastrointestinal: reports: No Symptoms Genitourinary: reports: Frequency Breasts: reports: No Symptoms Reported Musculoskeletal: reports: No Symptoms Integumentary: reports: No Symptoms Neurological: reports: No Symptoms Endocrine: reports: Unexplained Weight Loss Physical Exam Vital Signs: Vital Signs Temperature 99.1 F 04/06/19 09:49 Pulse Rate 73 04/06/19 09:49 Respiratory Rate 18 04/06/19 09:49 Blood Pressure 127/73 04/06/19 09:49 O2 Sat by Pulse Oximetry (%) 97 04/06/19 09:00 Constitutional: Yes: Anxious Eyes: Yes: EOM Intact HENT: Yes: Normocephalic Neck: Yes: Trachea Midline Cardiovascular: Yes: Regular Rate and Rhythm Respiratory: Yes: CTA Bilaterally Gastrointestinal: Yes: Normal Bowel Sounds ...Rectal Exam: Yes: Deferred Renal/: Yes: WNL Breast(s): Yes: WNL Musculoskeletal: Yes: WNL Extremities: Yes: WNL Edema: No Peripheral Pulses WNL: Yes Neurological: Yes: Alert, Oriented Labs: CBC, BMP 04/06/19 06:20 04/06/19 06:20 Problem List - Problems (1) Type 2 diabetes mellitus with hyperosmolarity without nonketotic hyperglycemic-hyperosmolar coma ([facility]) Code(s): E11.00 - TYPE 2 DIAB W HYPROSM W/O NONKET HYPRGLY-HYPROS COMA ([facility]) Assessment/Plan new onset dm2,non ketotic hyperglycemia dehydration Abnormal Lab Results 04/06/19 04/06/19 06:20 06:20 Random Glucose 253 H Hemoglobin A1c % 13.7 H Laboratory Results - last 24 hr 04/05/19 04/05/19 04/06/19 17:02 21:30 06:20 WBC 5.3 RBC 4.89 Hgb 15.3 Hct 45.5 MCV 93.0 MCH 31.2 MCHC 33.6 RDW 13.4 Plt Count 168 MPV 10.4 Sodium Potassium Chloride Carbon Dioxide Anion Gap BUN Creatinine Est GFR (CKD-EPI)AfAm Est GFR (CKD-EPI)NonAf POC Glucometer 208 243 Random Glucose Hemoglobin A1c % Calcium Phosphorus Magnesium 04/06/19 04/06/19 04/06/19 06:20 06:20 06:22 WBC RBC Hgb Hct MCV MCH MCHC RDW Plt Count MPV Sodium 136 Potassium 4.4 Chloride 100 Carbon Dioxide 27 Anion Gap 9 BUN 10 Creatinine 0.8 Est GFR (CKD-EPI)AfAm 126.81 Est GFR (CKD-EPI)NonAf 109.41 POC Glucometer 238 Random Glucose 253 H Hemoglobin A1c % 13.7 H Calcium 8.6 Phosphorus 3.0 Magnesium 1.8 04/06/19 11:01 WBC RBC Hgb Hct MCV MCH MCHC RDW Plt Count MPV Sodium Potassium Chloride Carbon Dioxide Anion Gap BUN Creatinine Est GFR (CKD-EPI)AfAm Est GFR (CKD-EPI)NonAf POC Glucometer 222 Random Glucose Hemoglobin A1c % Calcium Phosphorus Magnesium plan: bgm qid novolog scale levemir 20 units am metformin 500mg bid glimiperide 2mg daily follow up outpatient rx called to [facility]
--- NOTE | 2019-04-06 13:47 | PN ---
Teaching Attending Note Name of Resident: Hal Tom ATTENDING PHYSICIAN STATEMENT I saw and evaluated the patient. I reviewed the resident's note and discussed the case with the resident. I agree with the resident's findings and plan as documented. SUBJECTIVE: Patient is feeling better today with no acute distress. OBJECTIVE: Vital Signs Temperature 99.1 F 04/06/19 09:49 Pulse Rate 73 04/06/19 09:49 Respiratory Rate 18 04/06/19 09:49 Blood Pressure 127/73 04/06/19 09:49 O2 Sat by Pulse Oximetry (%) 97 04/06/19 09:00 GENERAL: The patient is awake, alert, and fully oriented, in no acute distress. HEAD: Normal with no signs of trauma. EYES: PERRL, extraocular movements intact, sclera anicteric, conjunctiva clear. ENT: Ears normal, oropharynx clear without exudates, moist mucous membranes. NECK: Trachea midline, full range of motion, supple. LUNGS: Breath sounds equal, clear to auscultation bilaterally, no wheezes, no crackles, no accessory muscle use. HEART: Regular rate and rhythm, S1, S2 without murmur, rub or gallop. ABDOMEN: Soft, nontender, nondistended, normoactive bowel sounds, no guarding, no rebound, no hepatosplenomegaly, no masses. EXTREMITIES: 2+ pulses, warm, well-perfused, no edema. NEUROLOGICAL: Cranial nerves II through XII grossly intact. Normal speech, gait not observed. PSYCH: Normal mood, normal affect. SKIN: Warm, dry, normal turgor, no rashes or lesions noted CBCD WBC 5.3 K/mm3 (4.0-10.0) 04/06/19 06:20 RBC 4.89 M/mm3 (4.00-5.60) 04/06/19 06:20 Hgb 15.3 GM/dL (11.7-16.9) 04/06/19 06:20 Hct 45.5 % (35.4-49) 04/06/19 06:20 MCV 93.0 fl (80-96) 04/06/19 06:20 MCHC 33.6 g/dl (32.0-35.9) 04/06/19 06:20 RDW 13.4 % (11.9-15.9) 04/06/19 06:20 Plt Count 168 K/MM3 (134-434) 04/06/19 06:20 MPV 10.4 fl (7.5-11.1) 04/06/19 06:20 CMP Sodium 136 mmol/L (136-145) 04/06/19 06:20 Potassium 4.4 mmol/L (3.5-5.1) 04/06/19 06:20 Chloride 100 mmol/L (98-107) 04/06/19 06:20 Carbon Dioxide 27 mmol/L (21-32) 04/06/19 06:20 Anion Gap 9 MMOL/L (8-16) 04/06/19 06:20 BUN 10 mg/dL (7-18) 04/06/19 06:20 Creatinine 0.8 mg/dL (0.55-1.3) 04/06/19 06:20 Random Glucose 253 mg/dL (74-106) H 04/06/19 06:20 Calcium 8.6 mg/dL (8.5-10.1) 04/06/19 06:20 Total Bilirubin 0.5 mg/dL (0.2-1) 04/05/19 06:00 AST 11 U/L (15-37) L 04/05/19 06:00 ALT 35 U/L (13-61) 04/05/19 06:00 Alkaline Phosphatase 84 U/L (45-117) 04/05/19 06:00 Total Protein 6.4 g/dl (6.4-8.2) 04/05/19 06:00 Albumin 3.0 g/dl (3.4-5.0) L 04/05/19 06:00 Current Medications Generic Name Dose Route Start Last Admin Trade Name Freq PRN Reason Stop Dose Admin Albuterol Sulfate 2 puff 04/04/19 22:33 Ventolin Hfa Inhaler - IH Q6H PRN SHORT OF BREATH/WHEEZING Albuterol/Ipratropium 1 amp 04/04/19 22:33 Duoneb - NEB Q6H PRN SHORTNESS OF BREATH Atorvastatin Calcium 40 mg 04/04/19 22:30 04/05/19 21:31 Lipitor - PO 40 mg HS WOODY Administration Clotrimazole 1 applic 04/04/19 23:00 04/06/19 09:22 Lotrimin 1% Cream - TP 1 applic BID WOODY Administration Glimepiride 2 mg 04/06/19 07:00 04/06/19 06:25 Amaryl - PO 2 mg DAILY@0700 [facility] Administration Heparin Sodium (Porcine) 5,000 unit 04/04/19 22:15 04/06/19 13:10 Heparin - SQ Not Given TID [facility] Insulin Aspart 1 vial 04/05/19 07:00 04/06/19 11:03 Novolog Vial Sliding Scale - SQ 4 units ACHS [facility] Administration Protocol Insulin Detemir 20 units 04/07/19 07:00 Levemir Vial SQ AM [facility] Losartan Potassium 100 mg 04/05/19 10:00 04/06/19 09:22 Cozaar - PO 100 mg DAILY WOODY Administration Metformin HCl 500 mg 04/06/19 16:30 Glucophage - PO BID@0700,1630 [facility] Home Medications Medication Instructions Recorded Albuterol Sulfate Inhaler - 2 inh PO Q8H PRN MDD 3 04/05/19 [Ventolin HFA Inhaler -] Glimepiride 2 mg DAILY 04/06/19 Insulin (Levemir) [Levemir Vial] 20 unit SQ DAILY 04/06/19 Metformin HCl [Glucophage] 500 mg BID 04/06/19 ASSESSMENT AND PLAN: Patient is a 43 yo Male with PMHx of asthma, seasonal allergies presenting with new onset DM presented with hgb A1c of 13.5 # New onset DM: presented with sugar of 670s, HgbA1c- 13.5. Endocrine for consult dr. Roy appreciate, will discharge the patient home on Amaryl, Levemir and metfromin. follow with dr. blake within a week, patient ws taught how to inject Levemir # Acute Hyponatremia: improved post ivf # Acute Dehydration: s/p IVF #Blurred vision due to hyperglycemia follow with opthalm as an outpatient. # Proteinuria: start low dose ACEI for renal protection # Hyperlipidemia on statin # Balanitis: clotrimazole cream # Asthma/seasonal allergies: stable , continue home meds discharge patient home
--- NOTE | 2019-04-06 14:07 | DS ---
Physical Exam: SUBJECTIVE: Patient seen and examined at bedside. No acute events overnight. Denies blurry vision. OBJECTIVE: Vital Signs Period Temp Pulse Resp BP Sys/Boggs Pulse Ox Last 24 Hr 98.4 F-99.4 F 66-91 18-20 113-127/68-74 97-98 PHYSICAL EXAM GENERAL: NAD HEAD: NC/AT EYES: EOMI Sclera ENT: MMM NECK: Trachea midline, full range of motion, supple. LUNGS: CTAB HEART: RRR Nl S1S2 ABDOMEN: Soft NDNT. : Phimosis EXTREMITIES: No CCE NEUROLOGICAL: Cranial nerves II through XII grossly intact. SKIN: Warm, dry, normal turgor, no rashes or lesions noted. LABS Laboratory Results - last 24 hr 04/05/19 04/05/19 04/06/19 17:02 21:30 06:20 WBC 5.3 RBC 4.89 Hgb 15.3 Hct 45.5 MCV 93.0 MCH 31.2 MCHC 33.6 RDW 13.4 Plt Count 168 MPV 10.4 Sodium Potassium Chloride Carbon Dioxide Anion Gap BUN Creatinine Est GFR (CKD-EPI)AfAm Est GFR (CKD-EPI)NonAf POC Glucometer 208 243 Random Glucose Hemoglobin A1c % Calcium Phosphorus Magnesium 04/06/19 04/06/19 04/06/19 06:20 06:20 06:22 WBC RBC Hgb Hct MCV MCH MCHC RDW Plt Count MPV Sodium 136 Potassium 4.4 Chloride 100 Carbon Dioxide 27 Anion Gap 9 BUN 10 Creatinine 0.8 Est GFR (CKD-EPI)AfAm 126.81 Est GFR (CKD-EPI)NonAf 109.41 POC Glucometer 238 Random Glucose 253 H Hemoglobin A1c % 13.7 H Calcium 8.6 Phosphorus 3.0 Magnesium 1.8 04/06/19 11:01 WBC RBC Hgb Hct MCV MCH MCHC RDW Plt Count MPV Sodium Potassium Chloride Carbon Dioxide Anion Gap BUN Creatinine Est GFR (CKD-EPI)AfAm Est GFR (CKD-EPI)NonAf POC Glucometer 222 Random Glucose Hemoglobin A1c % Calcium Phosphorus Magnesium HOSPITAL COURSE: Date of Admission:04/04/19 Pt is a 43 yo M with PMHx of asthma, seasonal allergies who presented to [facility] with new onset DM. Pt's glucose level in ED was 697. Pt was placed on Metformin , IV insulin, and IV fluids. Pt's A1C was 13.7%. Pt was also placed on insulin sliding scale and evaluated by endocrinology. Pt was also noted to have phimosis during admission. UA revealed 1+ protein, 3+ glucose, and 4+ Ketones. Pt was evaluated by endocrinology who discharged patient on 20 units levemir, 2 mg glimeperide and 500 bid metformin. Date of Discharge: 04/06/19 Minutes to complete discharge: 35 Discharge Summary Reason For Visit: HYPERGLYCEMIA Current Active Problems Type 2 diabetes mellitus with hyperosmolarity without nonketotic hyperglycemic- hyperosmolar coma ([facility]) (Acute) Condition: Improved - Instructions Diet, Activity, Other Instructions: You presented to the hospital due to severely elevated blood sugar. You have been diagnosed with Type 2 Diabetes Mellitus. Please follow up with the [facility], Dr Smith when you leave the hospital. You were started on levemir 20 units in the am, metformin 500 mg twice per day, and glimiperide 2 mg daily. These medications have been sent to your pharmacy. Dr. Smith has called in these medications to your pharmacy. Please follow up with your primary care doctor, Dr Denisse Mei. You were also noted to have phimosis, the inability to retract your penile foreskin. You were given a referral to see a urologist by your primary care doctor. Please see the urologist to assess for the need for a circumcision. Please consume a diet which is low in carbohydrates and sugar. please incorporate more vegetables and white meat in your diet. Referrals: Denisse Mei MD [Primary Care Provider] - 1 Week Cali Orlando MD [Staff Physician] - 1 Week Arnold Smith MD [Staff Physician] - 1 Week Disposition: HOME - Home Medications Comprehensive Discharge Medication List: Ambulatory Orders Albuterol Sulfate Inhaler - [Ventolin HFA Inhaler -] 2 inh PO Q8H PRN MDD 3 04/18 Glimepiride 2 mg DAILY 04/06/19 Insulin (Levemir) [Levemir Vial] 20 unit SQ DAILY 04/06/19 Metformin HCl [Glucophage] 500 mg BID 04/06/19 This patient is new to me today: No Emergency Visit: Yes ED Registration Date: 04/04/19 Care time: The patient presented to the Emergency Department on the above date and was hospitalized for further evaluation of their emergent condition. Critical Care patient: No - Discharge Referral Referred to [facility] No
[2019-04-06] MEDS ORDERED: metFORMIN HCL 500 MG TABLET (FP) PO SCH (16:30)
[2019-04-07] MEDS ORDERED: INSULIN (LEVEMIR) 100 UNITS/ML UNITS SQ SCH (07:00)
== END 2019-04-06 14:53 | disposition home or self-care (01) | DRG 420 ==
LOC: JER 16:38 → JERBED 19:05 → J7W 22:13
PROVIDERS: ADMIT Internal Medicine; ATTEND Internal Medicine
DX: E11.00 Type 2 diabetes mellitus with hyperosmolarity without nonketotic hyperglycemic-hyperosmolar coma (NKHHC) (principal); J98.4 Other disorders of lung; E87.1 Hypo-osmolality and hyponatremia; J45.909 Unspecified asthma, uncomplicated; E66.9 Obesity, unspecified; Z68.29 Body mass index [BMI] 29.0-29.9, adult; E86.0 Dehydration; N48.1 Balanitis; R06.09 Other forms of dyspnea; E78.5 Hyperlipidemia, unspecified; H53.8 Other visual disturbances
CPT/HCPCS: 36415; 71046-TC-FY; 80048; 80053; 80061; 80076; 81003; 82009; 82306; 82607; 82803; 82962; 83036; 83721; 83735; 83930; 84100; 84153; 84439; 84443; 85025; 85027; 85610; 85730; 86593; 86694; 86695; 86696; 86704; 86706; 86708; 86803; 87086; 87340; 87389; 87491; 87591; 93005; 93010; 93306-TC; 97116-GP; 97161-GP; 99282-25; J1644; J7030

== ENCOUNTER 2019-05-24 04:54 | Day surgery (SDC) | payer OTHER ==
[2019-05-17 18:08] VITALS: BMI 30.5
[2019-05-24] MEDS ORDERED: SUCCINYLCHOLINE CHLORIDE 200 MG/10 ML SYRINGE ONE (08:43)
[2019-05-24] MEDS ORDERED: PROPOFOL 20 ML ONE ×3 (08:43→09:33)
[2019-05-24] MEDS ORDERED: MIDAZOLAM HCL 2 MG/2 ML SINGLE DOSE VIAL ONE ×2 (08:56)
[2019-05-24] MEDS ORDERED: ceFAZolin 2 GRAM PREMIX BAG IVPB ONE (09:25)
[2019-05-24] MEDS ORDERED: LIDOCAINE HCL 1%, 10 MG/ML (50 mL VIAL) IJ ONE (10:00)
[2019-05-24] MEDS ORDERED: BACITRACIN 15 GM TUBE TOPICAL OINTMENT ONE (10:01)
[2019-05-24] MEDS ORDERED: ACETAMINOPHEN INJECTION 100 ML IVPB ONE (10:25)
[2019-05-24] MEDS ORDERED: oxyCODONE HCL 5 MG TABLET PO PRN ×3 (10:34)
[2019-05-24] MEDS ORDERED: ONDANSETRON 4 MG/2 ML VIAL IVPUSH PRN (10:34)
[2019-05-24] MEDS ORDERED: ACETAMINOPHEN 1000 MG/100 ML VIAL (NON FORMULARY) IVPB ONE (10:35)
--- NOTE | 2019-05-24 10:36 | OP ---
Operative Note - Note: Operative Date: 05/24/19 Pre-Operative Diagnosis: phimosis Operation: circumcision Findings: tight phimosis with adhesions Post-Operative Diagnosis: Same as Pre-op Surgeon: Cali Orlando Anesthesia: General Specimens Removed: phimotic foreskin Estimated Blood Loss (mls): 2 Operative Report Dictated: Yes
[2019-05-24] MEDS ORDERED: DEXTROSE 5%-0.45% SALINE 1,000 ML IV SCH (10:45)
[2019-05-24] MEDS ORDERED: LACTATED RINGERS SOLUTION 1,000 ML IV SCH (10:45)
--- NOTE | 2019-05-24 10:56 | OP ---
DATE OF OPERATION: 05/24/2019 PREOPERATIVE DIAGNOSIS: Phimosis. POSTOPERATIVE DIAGNOSIS: Phimosis. PROCEDURE: Circumcision. SURGEON: Tosin Dubois MD INDICATION: Patient is a 43-year-old male who presented with phimosis, who elected to undergo circumcision. He could not retract the foreskin. Risks, benefits, and alternatives discussed including the risks of bleeding, infection, dissatisfaction with the appearance, decreased or increased sensitivity with sexual activity, scar tissue formation, and potential need for additional procedures. After informed consent was obtained, patient taken to the OR, placed supine on the operating table. After cardiac monitoring administered and general anesthesia established, the penis was prepped and draped in standard surgical fashion. The foreskin had to be stretched with a clamp in order to retract it behind the head of the penis. Once that was done, there was evidence of bacteria behind the glans of the penis since it had not been able to be retracted for, I imagine, in years. This was all cleaned with Betadine. At this point, then, a circumferential incision was created just behind the coronal sulcus with 15 blade, and then, the foreskin was placed back over the head of the penis. A second circumferential incision was created at the level of the coronal sulcus. This sleeve of phimotic, tight foreskin was then excised with electrocautery. All bleeding sites were cauterized, and then, the proximal foreskin tissue was sewn back circumferentially to the distal skirt of foreskin tissue behind the coronal sulcus using 3-0 chromic sutures until a watertight anastomosis was achieved. A dry sterile dressing was then placed. Patient was then awoken from anesthesia and transferred to recovery room in stable condition. There were no complications. Minimal blood loss. TOSIN DUBOIS M.D. [id number]
[2019-05-24] MEDS ORDERED: oxyCODONE HCL 5 MG TABLET ONE (11:57)
[2019-05-24 12:47] VITALS: TEMP 97.8
[2019-05-24 14:15] VITALS: BP 120/70; PULSE 78
--- NOTE | 2019-05-29 11:58 | PATH ---
Surgical Pathology Report Patient Name: TAMARA GRACE [facility]. Rec. #: [id number] /Age/Gender: 1975 (Age: 43) / M Account: [id number] Location: [facility] SURGICAL Taken: 05/24/2019 Received: 05/24/2019 Reported: 05/29/2019 Physicians: Cali Orlando M.D. Specimen(s) Received FORESKIN Clinical History Phimosis Final Diagnosis FORESKIN, CIRCUMCISION: FORESKIN SHOWING MODERATE CHRONIC DERMAL INFLAMMATION. Electronically Signed Phyllis Garcia M.D. Gross Description Received in formalin labeled "foreskin," is a 5.3 x 2.6 x 0.4 cm gao-brown, wrinkled portion of skin, consistent with foreskin. No epidermal lesions are identified. Gate Shear Operator sections are submitted in one cassette. /05/25/2019 saudi/05/25/2019
== END 2019-05-24 14:15 | disposition home or self-care (01) ==
LOC: JASU-SURG 04:54
PROVIDERS: ATTEND Urology
PROC: 0VTTXZZ Resection of Prepuce, External Approach (ICD-10-PCS; principal; 2019-05-24 09:00)
DX: N47.1 Phimosis (principal); E11.9 Type 2 diabetes mellitus without complications; I10 Essential (primary) hypertension; J45.909 Unspecified asthma, uncomplicated
CPT/HCPCS: 82962; 88304-TC; 94760; J0131